=== PATIENT | female | born 1985 ===

== ENCOUNTER 2019-01-26 10:04 | Outpatient (CLI) | payer SELFPAY ==
[~2019-01-26] VITALS: Ht 180.3 cm; Wt 102.7 kg
[2019-01-26 10:56] VITALS: BP 131/87
[2019-01-26 11:06] LABS: BASOPHILS # (AUTO) 0.03 x10^3/uL (0-0.1); BASOPHILS % (AUTO) 0 % (0-1); EOSINOPHILS # (AUTO) 0.07 x10^3/uL (0-0.4); EOSINOPHILS % (AUTO) 1 % (1-7); LYMPHOCYTES # (AUTO) 1.11 x10^3/uL (1-3.4); LYMPHOCYTES % (AUTO) 13 % (22-44); MD NO; MEAN CORPUSCULAR HEMOGLOBIN 29.8 pg (27.0-34.8); MEAN CORPUSCULAR HGB CONC 33.5 g/dL (32.4-35.8); MEAN CORPUSCULAR VOLUME 88.9 fL (80-100); MEAN PLATELET VOLUME 8.2 fL (7.4-10.4); MONOCYTES % (AUTO) 7 % (2-9); NEUTROPHILS # (AUTO) 6.72 x10^3/uL (1.8-6.8); NEUTROPHILS % (AUTO) 79 % (42-75); PLATELET COUNT 186 x10^3/uL (130-400); RED BLOOD COUNT 4.73 x10^6/uL (3.82-5.3); RED CELL DISTRIBUTION WIDTH 13.9 % (9.6-15.2)
[2019-01-26 11:15] LABS: ALANINE AMINOTRANSFERASE 43 U/L (12-78); ALBUMIN 2.7 g/dL (3.4-5.0); ANION GAP 7 mmol/L (5-15); CALCIUM 8.2 mg/dL (8.5-10.1); CHLORIDE 109 mmol/L (98-107)
[2019-01-26 11:18] LABS: ALKALINE PHOSPHATASE 98 U/L (45-117); BILIRUBIN,TOTAL 0.4 mg/dL (0.2-1.0); CREATININE 0.57 mg/dL (0.55-1.02); TOTAL PROTEIN 6.5 g/dL (6.4-8.2)
[2019-01-26] MEDS ORDERED: TERBUTALINE 1 MG/ML, 1ML ONE (13:04)
[2019-01-26] MEDS ORDERED: TERBUTALINE 1 MG/ML, 1ML SQ ONE (13:30)
== END 2019-01-26 15:20 | disposition home or self-care (01) ==
LOC: LDOP 10:04
PROVIDERS: ATTEND Obstetrics & Gynecology
DX: O36.8190 Decreased fetal movements, unspecified trimester, not applicable or unspecified (principal); O26.893 Other specified pregnancy related conditions, third trimester; O09.513 Supervision of elderly primigravida, third trimester; M54.5 Low back pain; Z3A.35 35 weeks gestation of pregnancy
CPT/HCPCS: 36415; 59025; 76815; 80053; 85025; 96372; 99201; J3105; G0463

== ENCOUNTER 2019-02-18 10:00 | Inpatient (IN) | payer BC ==
[~2019-02-18] VITALS: Ht 180.3 cm; Wt 104.5 kg
[2019-02-18 10:08] VITALS: BP 138/91
[2019-02-18] MEDS ORDERED: OXYTOCIN 30U/ 0.9% NaCL 500ML 500 ML ONE ×2 (10:20→13:53)
[2019-02-18] MEDS ORDERED: OXYTOCIN 30U/ 0.9% NaCL 500ML 500 ML IV ONE (10:20)
[2019-02-18] MEDS ORDERED: D5%-LACTATED RINGERS 1,000 ML IV SCH (10:20)
[2019-02-18] MEDS ORDERED: MISOPROSTOL 200 MCG TABLET ONE (10:20)
[2019-02-18] MEDS ORDERED: LACTATED RINGERS 1,000 ML IV SCH (10:20)
[2019-02-18] MEDS ORDERED: LIDOCAINE 1%, 20ML ONE (10:20)
[2019-02-18] MEDS ORDERED: NEWBORN KIT ONE (10:20)
[2019-02-18] MEDS ORDERED: SODIUM CITRATE/CITRIC ACID 30 ML UDC PO PRN (10:30)
[2019-02-18] MEDS ORDERED: TERBUTALINE 1 MG/ML, 1ML IVPush PRN (10:30)
[2019-02-18] MEDS ORDERED: METOCLOPRAMIDE 5 MG/ML, 2ML IVPush PRN (10:30)
[2019-02-18] MEDS ORDERED: FENTANYL PF 100 MCG/2ML IVPush PRN (10:30)
[2019-02-18] MEDS ORDERED: FENTANYL PF 100 MCG/2ML IV PRN (10:30)
[2019-02-18] MEDS ORDERED: ONDANSETRON 2MG/ML, 2ML IVPush PRN (10:30)
[2019-02-18] MEDS ORDERED: TERBUTALINE 1 MG/ML, 1ML SQ PRN (10:30)
[2019-02-18 10:56] LABS: BASOPHILS # (AUTO) 0.03 x10^3/uL (0-0.1); BASOPHILS % (AUTO) 0 % (0-1); EOSINOPHILS # (AUTO) 0.07 x10^3/uL (0-0.4); EOSINOPHILS % (AUTO) 1 % (1-7); LYMPHOCYTES # (AUTO) 1.32 x10^3/uL (1-3.4); LYMPHOCYTES % (AUTO) 14 % (22-44); MD NO; MEAN CORPUSCULAR HEMOGLOBIN 30.4 pg (27.0-34.8); MEAN CORPUSCULAR HGB CONC 33.7 g/dL (32.4-35.8); MEAN CORPUSCULAR VOLUME 90.3 fL (80-100); MEAN PLATELET VOLUME 9.2 fL (7.4-10.4); MONOCYTES # (AUTO) 0.69 x10^3/uL (0.2-0.8); MONOCYTES % (AUTO) 8 % (2-9); NEUTROPHILS # (AUTO) 7.07 x10^3/uL (1.8-6.8); NEUTROPHILS % (AUTO) 77 % (42-75); PLATELET COUNT 203 x10^3/uL (130-400)
[2019-02-18] MEDS ORDERED: IBUPROFEN 600 MG TABLET ONE (13:53)
[2019-02-18] MEDS: IBUPROFEN 600 MG TABLET PO PRN ×2 (13:56→20:30)
[2019-02-18] MEDS ORDERED: SIMETHICONE 80 MG CHEW TAB PO PRN (14:00)
[2019-02-18] MEDS ORDERED: METOCLOPRAMIDE 5 MG/ML, 2ML IV PRN (14:00)
[2019-02-18] MEDS ORDERED: ONDANSETRON 2MG/ML, 2ML IV PRN (14:00)
[2019-02-18] MEDS ORDERED: METHYLERGONOVINE 0.2 MG/ML IM PRN (14:00)
[2019-02-18] MEDS ORDERED: MISOPROSTOL 200 MCG TABLET PR PRN (14:00)
[2019-02-18] MEDS ORDERED: ACETAMINOPHEN 325 MG TABLET PO PRN ×2 (14:00)
[2019-02-18] MEDS: OXYTOCIN 30U/ 0.9% NaCL 500ML 500 ML IV SCH ×2 (15:13→23:46)
[2019-02-18 16:04] VITALS: BP 101/65
[2019-02-18 20:00] VITALS: BP 122/77
[2019-02-18] MEDS: DOCUSATE 100 MG CAPSULE PO PRN (20:30)
[2019-02-19 00:05] VITALS: BP 121/79
[2019-02-19 04:00] VITALS: BP 110/71
[2019-02-19 04:59] LABS: BASOPHILS # (AUTO) 0.02 x10^3/uL (0-0.1); BASOPHILS % (AUTO) 0 % (0-1); EOSINOPHILS # (AUTO) 0.13 x10^3/uL (0-0.4); EOSINOPHILS % (AUTO) 1 % (1-7); LYMPHOCYTES # (AUTO) 1.71 x10^3/uL (1-3.4); LYMPHOCYTES % (AUTO) 17 % (22-44); MD NO; MEAN CORPUSCULAR HEMOGLOBIN 30.3 pg (27.0-34.8); MEAN CORPUSCULAR HGB CONC 32.9 g/dL (32.4-35.8); MEAN CORPUSCULAR VOLUME 91.8 fL (80-100); MEAN PLATELET VOLUME 9.3 fL (7.4-10.4); MONOCYTES # (AUTO) 0.82 x10^3/uL (0.2-0.8); MONOCYTES % (AUTO) 8 % (2-9); NEUTROPHILS # (AUTO) 7.33 x10^3/uL (1.8-6.8); NEUTROPHILS % (AUTO) 73 % (42-75); PLATELET COUNT 176 x10^3/uL (130-400); RED BLOOD COUNT 4.17 x10^6/uL (3.82-5.3); RED CELL DISTRIBUTION WIDTH 14.1 % (9.6-15.2)
[2019-02-19] MEDS: IBUPROFEN 600 MG TABLET PO PRN ×2 (06:10→13:42)
[2019-02-19] MEDS: DOCUSATE 100 MG CAPSULE PO PRN (08:16)
[2019-02-19 08:19] VITALS: BP 115/80
[2019-02-19] MEDS ORDERED: PRENATAL VIT/IRON/FA 1 EACH TABLET PO SCH (09:00)
[2019-02-19] MEDS: OXYTOCIN 30U/ 0.9% NaCL 500ML 500 ML IV SCH (09:46)
== END 2019-02-19 14:40 | disposition home or self-care (01) | DRG 807 ==
LOC: LDOP 10:00 → EDIP 10:30 → UNDOADMIN 10:30 → LDIP 10:30 → 2NW 15:34
PROVIDERS: ADMIT Obstetrics & Gynecology; ATTEND Obstetrics & Gynecology
PROC: 10E0XZZ Delivery of Products of Conception, External Approach (ICD-10-PCS; principal; 2019-02-18)
PROC: 10907ZC Drainage of Amniotic Fluid, Therapeutic from Products of Conception, Via Natural or Artificial Opening (ICD-10-PCS; 2019-02-18)
DX: O77.0 Labor and delivery complicated by meconium in amniotic fluid (principal); Z37.0 Single live birth; Z3A.38 38 weeks gestation of pregnancy
CPT/HCPCS: 36415; 85025; 86850; 86900; G0378; J2590; J7120